=== PATIENT | female | born 1990 | race Caucasian/White ===

== ENCOUNTER 2016-09-04 18:54 | Emergency (ER) | payer OTHER ==
[2016-09-04 19:34] LABS: Hematocrit 39.1 % (37.0-47.0); Hemoglobin 13.4 gm/dL (12.5-16.0); Mean Cell Volume 89.9 fl (78-100); Mean Corpuscular Hemoglobin 30.8 pg (27-31); Mean Corpuscular Hgb Conc 34.3 g/dl (32-36); Mean Platelet Volume 10.2 fl (6.0-9.5); Neutrophil # 8.2 K/mm3 (1.3-6.0); Neutrophil % 61.8 % (42-75.0); Platelet Count 299 K/mm3 (150-450); Red Blood Count 4.35 M/mm3 (4.2-5.4); Red Cell Distribution Width 11.9 % (11.5-14.0); White Blood Count 13.2 K/mm3 (4.0-10.5)
[2016-09-04 19:43] LABS: Urine Bilirubin Negative (NEGATIVE); Urine Blood Negative /ul (NEGATIVE); Urine Ketone Negative (NEGATIVE); Urine Nitrite Negative (NEGATIVE); Urine Protein Negative (NEGATIVE); Urine Urobilinogen Normal (NORMAL)
[2016-09-04 19:52] LABS: Urine Appearance Clear; Urine Bacteria None Seen; Urine Color Yellow; Urine RBC None Seen /hpf (0-5); Urine WBC None Seen /hpf (0-5)
--- NOTE | 2016-09-04 20:20 | ERNOTE ---
ER Female HPI Date of Service: 09/04/16 Stated Complaint: , cramping Presenting Symptoms: pelvic pain Time Seen by Provider: 09/04/16 19:14 Source: patient Exam Limitations: no limitations Immunizations: IMMUNIZATION HX Immunizations Up to Date Yes Allergies/Adverse Reactions: Allergies No Known Allergies Allergy (Verified 05/25/16 13:14) Home Medications: HOME MEDICATIONS NK [No Home Medication] 05/25/16 [Last Taken Unknown] Vit37/Iron/Folic Acid [Prenata Chewable Tablet] 1 each PO DAILY [Last Taken Unknown] - History of Present Illness Narrative: 26-year-old female presenting to the emergency room for right lower quadrant abdominal cramping. States she took a home test and she is about 4-5 weeks . Patient states she does not have any vaginal discharge or bleeding but does have right lower quadrant cramping. Patient states she had her last miscarriage at week 5. Date (Duration): 09/04/16 Timing: Present: intermittent Quality: Present: mild Onset Location: Present: RLQ Radiation: Present: none Activities at Onset: Present: none Prior Abdominal Problems: Present: similar symptoms - with last miscarriage Sexual [place] History: Present: less than 2 months ago Associated Symptoms: Absent: fever/chills, nausea, vomiting Review of Systems - Review of Systems Constitutional: Present: no symptoms reported. Absent: fever, chills EYE: Present: no symptoms reported ENT: Present: no symptoms reported Respiratory: Present: no symptoms reported Cardiology: Present: no symptoms reported Gastrointestinal/Abdominal: Present: no symptoms reported Genitourinary: Present: See HPI Musculoskeletal: Present: no symptoms reported Skin: Present: no symptoms reported Neurological: Present: no symptoms reported Endocrine: Present: no symptoms reported Hematologic/Lymphatic: Present: no symptoms reported Psych: Present: no symptoms reported - Patient's Past Medical History Patient History - Medical: No pertinent hx Patient History - Cardiac/Respiratory: No pertinent hx Patient History - Cancer: No Hx of Cancer Patient History - Surgical Procedures: No surgical history Patient History - Other: None LMP (females 10-50): 1 month - Social History Living Situations: home Abuse History: No History of abuse Psych History: No pertinent hx Smoking Status: Never smoker Alcohol Use: none Drug Use: none - Immunizations Immunizations Up to Date: Yes Physical Exam - Physical Exam Narrative: patient states she has has right lower abdominal cramping on and off today. States it is not as bad as her period craps but can become uncomfortable. denies any vaginal discharge or blood. General Appearance: Present: wd/wn, alert, no apparent distress Eye Exam: Normal inspection: bilateral Ears, Nose, Throat: Present: normal ENT inspection Neck: Present: normal inspection Respiratory: Present: no respiratory distress Cardiovascular/Chest: Present: no murmur, normal peripheral pulses, tachycardia Gastrointestinal/Abdominal: Present: normal bowel sounds, nontender, soft - denies pain with palpation and states she is not having cramps at this time. Extremity Exam: Present: normal inspection Neurological Exam: Present: alert, oriented Skin Exam: Present: normal color Lymphatic Exam: Present: no adenopathy Pelvic Exam: Absent: discharge ED Progress - Results and Orders Patient's Lab Results:: I have reviewed the patient's lab results. Results and Orders: WBC elevated, UA negative - Vital Signs Patient's Vital Signs:: I have reviewed the patient's vital signs. Vital Signs: Vital Signs 09/04/16 19:03 Temperature 37.3 C Pulse Rate 115 H Respiratory 18 Rate Blood Pressure 145/90 O2 Sat by Pulse 100 Oximetry - CT/Ultrasound CT/Ultrasound Narrative: Technique: Transabdominal first trimester OB ultrasound performed. Incomplete evaluation of the IUP and ovaries necessitated transvaginal imaging Comparison: None Findings: Transabdominal and transvaginal images show a single intrauterine . Gestational sac yolk sac and pole are identified. Cardiac activity is visualized and documented at 91 beats per minute. This is fairly low for a first trimester . [place] -rump length measurements average 0.44 cm. 6 weeks 1 day. Corpus luteal cyst seen in the right ovary. Ovaries are otherwise normal. IMPRESSION: SINGLE LIVE INTRAUTERINE GESTATION AT 6 WEEKS 1 DAY. HOWEVER, THE CARDIAC ACTIVITY IS 91 BPM. THIS IS FAIRLY LOW FOR A FIRST TRIMESTER ULTRASOUND. RECOMMEND CLOSE CLINICAL FOLLOW-UP TO INCLUDE SERIAL BETA HCG EVALUATION EVERY 48 HOURS TO EVALUATE FOR APPROPRIATE INCREASE. Electronically signed by Ben Harman D.O.. - Progress/Reassessment Chief Complaint: Genitourinary Problem Progress:: Unchanged Plan - Plan Plan: after lab review, pelvic US to check for positive preg, us results: Technique: Transabdominal first trimester OB ultrasound performed. Incomplete evaluation of the IUP and ovaries necessitated transvaginal imaging Comparison: None Findings: Transabdominal and transvaginal images show a single intrauterine . Gestational sac yolk sac and pole are identified. Cardiac activity is visualized and documented at 91 beats per minute. This is fairly low for a first trimester . [place] -rump length measurements average 0.44 cm. 6 weeks 1 day. Corpus luteal cyst seen in the right ovary. Ovaries are otherwise normal. IMPRESSION: SINGLE LIVE INTRAUTERINE GESTATION AT 6 WEEKS 1 DAY. HOWEVER, THE CARDIAC ACTIVITY IS 91 BPM. THIS IS FAIRLY LOW FOR A FIRST TRIMESTER ULTRASOUND. RECOMMEND CLOSE CLINICAL FOLLOW-UP TO INCLUDE SERIAL BETA HCG EVALUATION EVERY 48 HOURS TO EVALUATE FOR APPROPRIATE INCREASE. Electronically signed by Ben Harman D.O.. Departure Clinical Impression: Threatened in early - Departure Disposition: Home Follow Up Needed Condition: Stable Instructions: Threatened Miscarriage, [id number] Additional Instructions: RETURN HOME AND REST. RETURN TO THE ER IF YOU HAVE INCREASED SYMPTOMS. MAY TAKE TYLENOL FOR PAIN. FOLLOW-UP WITH YOUR OBGYN TO INCLUDE SERIAL BETA HCG EVALUATION EVERY 48 HOURS TO EVALUATE FOR APPROPRIATE INCREASE. Referrals: Eve Reis MD [Primary Care Provider] -
[2016-09-04 20:22] VITALS: BP 129/89
== END 2016-09-04 22:15 | disposition home or self-care (01) ==
LOC: ER 18:54
DX: O20.0 Threatened abortion (principal); Z3A.01 Less than 8 weeks gestation of pregnancy

== ENCOUNTER 2016-12-09 18:40 | Emergency (ER) | payer OTHER ==
--- NOTE | 2016-12-09 19:10 | ERNOTE ---
Medical Problem HPI - Narrative Date of Service: 12/09/16 - General Chief Complaint: General Assessment Time Seen by Provider: 12/09/16 18:56 Source: patient Exam Limitations: no limitations - Immun/Allergies/Home Medications Immunizations: IMMUNIZATION HX Immunizations Up to Date Yes History of Influenza Vaccine Yes Allergies/Adverse Reactions: Allergies No Known Allergies Allergy (Verified 12/09/16 18:48) Home Medications: HOME MEDICATIONS Vit37/Iron/Folic Acid [Prenata Chewable Tablet] 1 each PO DAILY [Last Taken Unknown] - History of Present History Narrative: Pt. comes in with LLQ pain and cramping that is intermittent in nature for three days. Pt. is 19 weeks and has had nausea and vomiting throughout her entire but denies any change in that recently or other symptoms such as bleeding, fever, SOB, CP, NVD, recent illness, alleviating factors, aggravating factors, or prehospital treatment. Review of Systems - Review of Systems Constitutional: Present: no symptoms reported. Absent: recent illness, fever, chills, weakness, fatigue, malaise EYE: Present: no symptoms reported ENT: Present: no symptoms reported Respiratory: Present: no symptoms reported. Absent: shortness of breath, cough , wheezing Cardiology: Present: no symptoms reported. Absent: chest pain, palpitations, edema Gastrointestinal/Abdominal: Present: nausea, vomiting, abdominal pain. Absent: diarrhea, constipation, eating less, drinking less Genitourinary: Present: no symptoms reported. Absent: frequency, decreased urinary output Musculoskeletal: Present: no symptoms reported. Absent: back pain, joint pain Skin: Present: no symptoms reported Neurological: Present: no symptoms reported. Absent: headache, dizziness/light- headedness, numbness, tingling All Other Systems: All systems neg except as marked - Patient's Past Medical History Patient History - Medical: Other - miscarriage x 1 Patient History - Cardiac/Respiratory: No pertinent hx Patient History - Cancer: No Hx of Cancer Patient History - Surgical Procedures: No surgical history Patient History - Other: None - Social History Living Situations: significant other Abuse History: No History of abuse Psych History: No pertinent hx Smoking Status: Never smoker Alcohol Use: none Drug Use: none - Immunizations Immunizations Up to Date: Yes History of Influenza Vaccine: Yes Physical Exam - Physical Exam General Appearance: Present: wd/wn, alert, no apparent distress Eye Exam: Normal inspection: bilateral, PERRL: bilateral, EOMI: bilateral Neck: Present: normal inspection, nontender. Absent: lymphadenopathy (R), lymphadenopathy (L) Respiratory: Present: no respiratory distress, normal breath sounds, no accessory muscle use, chest nontender, lungs clear Cardiovascular/Chest: Present: regular rate, rhythm, no murmur, normal peripheral pulses Gastrointestinal/Abdominal: Present: normal bowel sounds, nondistended, soft, no organomegaly, tenderness - LLQ suprapubic Back Exam: Present: normal inspection Extremity Exam: Present: normal inspection Neurological Exam: Present: alert, oriented Skin Exam: Present: normal color, warm/dry. Absent: pallor, skin rash ED Progress - Date and Time Seen: Date and Time: 12/09/16 20:[address] Reis and will have pt. follow up for appointment as scheduled - Results and Orders Patient's Lab Results:: I have reviewed the patient's lab results. - Vital Signs Patient's Vital Signs:: I have reviewed the patient's vital signs. Vital Signs: Vital Signs 12/09/16 18:42 Temperature 37.2 C Pulse Rate 108 H Respiratory 18 Rate Blood Pressure 97/75 O2 Sat by Pulse 98 Oximetry - CT/Ultrasound CT/Ultrasound Narrative: US positive for FHT, venous biswas, and active fetus placenta is anterior and not encroaching - Progress/Reassessment Chief Complaint: General Assessment Progress:: Improved Departure - Departure Clinical Impression: Round ligament pain Disposition: Home self-care Condition: Good Instructions: Round Ligament Pain Additional Instructions: Please follow up with Dr kwan as next scheduled. no lifting and no sex until cleared by him. Referrals: Eve Reis MD [Primary Care Provider] -
[2016-12-09 19:21] LABS: Urine Appearance Slightly Cloudy; Urine Bilirubin Negative (NEGATIVE); Urine Blood Negative /ul (NEGATIVE); Urine Color Yellow; Urine Ketone Negative (NEGATIVE); Urine Nitrite Negative (NEGATIVE); Urine Protein Negative (NEGATIVE); Urine Urobilinogen Normal (NORMAL)
[2016-12-09 19:24] LABS: Urine Bacteria None Seen; Urine RBC None Seen /hpf (0-5); Urine WBC 0-5 /hpf (0-5)
[2016-12-09 20:16] VITALS: BP 130/87
== END 2016-12-09 20:39 | disposition home or self-care (01) ==
LOC: ER 18:40
DX: O26.892 Other specified pregnancy related conditions, second trimester (principal); R10.2 Pelvic and perineal pain; Z3A.19 19 weeks gestation of pregnancy

== ENCOUNTER 2017-04-09 13:49 | Inpatient (IN) | payer OTHER ==
[2017-04-09 14:08] LABS: Hemoglobin 13.1 gm/dL (12.5-16.0); Mean Cell Volume 95.4 fl (78-100); Mean Corpuscular Hgb Conc 33.6 g/dl (32-36); Mean Platelet Volume 11.2 fl (6.0-9.5); Neutrophil # 7.7 K/mm3 (1.3-6.0); Neutrophil % 66.4 % (42-75.0); Platelet Count 189 K/mm3 (150-450); Red Blood Count 4.09 M/mm3 (4.2-5.4); Red Cell Distribution Width 13.7 % (11.5-14.0); White Blood Count 11.6 K/mm3 (4.0-10.5)
[2017-04-09 14:16] LABS: Random Urine Total Protein 35.1 mg/dL (0-12)
[2017-04-09 14:20] LABS: Albumin * 2.4 gm/dl (3.4-5.0); Anion Gap 15.6 mmol/L (6.8-13.8); BUN/Creatinine Ratio 11.1 (9.0-21.6); Bilirubin, Total 0.2 mg/dL (0.0-1.1); Ca. Corrected For Albumin 9.9 mg/dL (8.4-10.2); Calcium * 8.9 mg/dL (7.9-10.9); Carbon Dioxide 21.5 mmol/L (24-32.6); Potassium 4.1 mmol/L (3.4-4.6); Total Protein 6.5 gm/dL (6.2-8.2)
[2017-04-09] MEDS ORDERED: OXYTOCIN/DEXTROSE 5%-WATER 30 UNITS/500 ML BAG IV ONE (16:02)
[2017-04-09] MEDS ORDERED: LIDOCAINE HCL 50 ML VIAL PERI PRN (16:02)
[2017-04-09] MEDS ORDERED: ONDANSETRON HCL/PF 2 MG/ML VIAL IV PRN (16:02)
[2017-04-09] MEDS ORDERED: RINGER'S SOLUTION,LACTATED 1,000 ML IV ONE (16:02)
[2017-04-09] MEDS: DEXTROSE 5%-LACTATED RINGERS 1,000 ML IV PRN (16:31)
--- NOTE | 2017-04-10 04:10 | PN ---
Progess Note - Interim Narrative: 04/10/17 04:07 Patient becoming more uncomfortable with contractions Vital signs stable. BPs 130-140s/60-90's Pitocin at 12 mu/min. FHT:150 baseline, reassuring Contractions q 2-3 min Cervix: 4-5/90/-2, AROM-clear Impression: Intrauterine at 37 2/7 weeks induction of labor for gestational hypertension. IUPC and FSE placed to difficulty monitoring Plan: Continue present plan
[2017-04-10] MEDS ORDERED: ONDANSETRON HCL/PF 2 MG/ML VIAL IV PRN (04:17)
[2017-04-10] MEDS ORDERED: NALOXONE HCL 1 MG/1 ML SYRG IV PRN (04:17)
[2017-04-10] MEDS ORDERED: BUPIVACAINE HCL/0.9 % NACL/PF 250 ML EP PRN (04:17)
[2017-04-10] MEDS ORDERED: fentaNYL CITRATE/PF 50 MCG/ML AMPUL IT SCH (04:30)
[2017-04-10] MEDS: DEXTROSE 5%-LACTATED RINGERS 1,000 ML IV PRN (05:06)
--- NOTE | 2017-04-10 05:12 | OR ---
Anesthesia Pre Procedure Eval Date of Service: 04/10/17 Pre Procedure Evaluation: Anesthesia Pre Procedure Evaluation Heart Rate: 114 Blood Pressure: 141/79 Temperature: 37.2C Respiratory Rate: 18 SaO2: 96 DATE: 04/10/2017 TIME: 05 10 AM INDICATIONS: Active labor, labor pain PAST MEDICAL HISTORY: Multipara patient connector. Labor requesting labor analgesia, being induced for gestational hypertension and is History of GERD: Now History of smoking: No History of sleep apnea: No EXAM: Heart regular; lungs clear ASSESSMENT OF MEDICAL STATUS: Appropriate candidate for labor analgesia PLANNED PROCEDURE: CSE for Home Medications: HOME MEDICATIONS Vit37/Iron/Folic Acid [Prenata Chewable Tablet] 1 each PO DAILY [Last Taken 03/12/17 21:00] Aspirin 1 tab PO DAILY 03/13/17 [Last Taken 03/12/17 21:00] Ferrous Sulfate [Iron] 1 tab PO DAILY 03/13/17 [Last Taken 03/12/17 21:00]
--- NOTE | 2017-04-10 05:32 | OR ---
Anesthesia Procedure Note - Anesthesia Procedure Note Date of Service: 04/10/17 Narrative: 04/10/17 05:31 ANESTHESIA PROCEDURE NOTE Date of Procedure: 04/10/2017 Time of procedure: 5:10 AM. Performed by: MARJORIE Vaughn CRNA, MSN Prosthetics Technician: Connie Crouch RN. Preprocedure diagnosis: Active labor, labor pain. Post procedure diagnosis: Same. Procedure:Epidural for labor analgesia L3 4. Indications: Labor pain. Findings: See below. Details of the procedure: The patient was placed on the side of the bed in sitting positionand prepped with DuraPrep then draped in a sterile fashion. Lidocaine 1% was infiltrated to the skin and subcutaneous tissues at the level of the L3 4 interspace. An 18-gauge Touhy needle was used to approach the epidural space with loss of resistance technique. Once loss of resistance was achieved a 27-gauge spinal needle was passed through the epidural needle and CSF was contacted. After CSF returned, 20 mcg of fentanyl was injected in the spinal needle was removed the epidural catheter was then threaded approximately 4 cm in the epidural needle was removed. The catheter was taped in place and after careful aspiration 3 mL of 1.5% lidocaine with 1-200,000 epinephrine was injected without change in maternal heart rate or sensorium. . EBL: Minimal. Fluids: N/A. Specimen: N/A. Post procedure condition: The patient tolerated the procedure well with good relief. No complications were noted. Thank you for this consultation. Luis Mckee CRNA, MARJORIE, MSN
[2017-04-10] MEDS ORDERED: HYDROCORTISONE 30 APPL TUBE TP PRN (07:29)
[2017-04-10] MEDS ORDERED: GLYCERIN/WITCH HAZEL LEAF 40 APPL BOX TP PRN (07:29)
[2017-04-10] MEDS ORDERED: oxyCODONE HCL/ACETAMINOPHEN 1 TAB TABLET PO PRN ×2 (07:29)
[2017-04-10] MEDS ORDERED: BENZOCAINE/MENTHOL 81 SPRAY CAN TP PRN (07:29)
[2017-04-10] MEDS ORDERED: SENNOSIDES 8.6 MG TABLET PO PRN (07:29)
[2017-04-10] MEDS ORDERED: BISACODYL 10 MG SUPP.RECT RC PRN (07:29)
[2017-04-10] MEDS ORDERED: OXYTOCIN/DEXTROSE 5%-WATER 30 UNITS/500 ML BAG IV ONE (07:29)
--- NOTE | 2017-04-10 07:31 | OR ---
Operative Report - Dictated Report Narrative: Spontaneous vaginal delivery of viable female at 0653 on 04/10/2017 with Apgars 8 and 9, weighing 3300 g in MENDEL position. Left hand presented with chin. Cord clamping delayed approximately 1 minute Placenta delivered complete, intact, with three vessel cord Estimated blood loss: less than 50 ml Lacerations: None
[2017-04-10] MEDS: IBUPROFEN 800 MG TABLET PO PRN (08:53)
[2017-04-10] MEDS: DOCUSATE SODIUM 100 MG CAPSULE PO SCH ×2 (10:37→20:24)
[2017-04-11] MEDS: IBUPROFEN 800 MG TABLET PO PRN ×2 (02:19→22:03)
[2017-04-11] MEDS: DOCUSATE SODIUM 100 MG CAPSULE PO SCH ×2 (09:06→21:07)
--- NOTE | 2017-04-11 11:57 | PN ---
Subjective - Date and Time Seen Date: 04/11/17 Time: 11:57 Objective - Vitals Vitals: Last Vital Signs Temp 36.6 C 04/11/17 09:07 Pulse 92 04/11/17 09:07 Resp 16 04/11/17 09:07 BP 129/78 04/11/17 09:07 Pulse Ox 97 04/11/17 09:07 Patient denies complaints. Lochia wnl Abdomen - soft, nontender Uterus - firm, at umbilicus - 1 No calf tenderness Impression: day #1 - s/p spontaneous vaginal delivery. Gestational hypertension-stable. Plan: Continue routine care Cauti Physician Documentation - Urinary Catheter Management Urethral (Anthony) Date of Insertion: 04/10/17 Time of Insertion: 06:10 Date of Removal: 04/10/17 Time of Removal: 06:35
[2017-04-12] MEDS: DOCUSATE SODIUM 100 MG CAPSULE PO SCH ×2 (08:34→20:26)
[2017-04-12] MEDS: IBUPROFEN 800 MG TABLET PO PRN ×2 (11:34→20:26)
--- NOTE | 2017-04-12 13:40 | PN ---
Subjective - Date and Time Seen Date: 04/12/17 Time: 13:33 Objective - Vitals Vitals: Last Vital Signs Temp 36.4 C L 04/12/17 08:30 Pulse 91 04/12/17 08:30 Resp 18 04/12/17 08:30 BP 145/95 04/12/17 08:30 Pulse Ox 100 04/12/17 08:30 Patient denies complaints. Lochia wnl Abdomen - soft, nontender Uterus - firm, at umbilicus - 2 No calf tenderness Impression: day #2 - s/p spontaneous vaginal delivery. Gestational hypertension-stable. Morbid obesity. Plan: Routine discharge instructions. Preeclampsia precautions. Follow-up for blood pressure check in 1 week. Cauti Physician Documentation - Urinary Catheter Management Urethral (Anthony) Date of Insertion: 04/10/17 Time of Insertion: 06:10 Date of Removal: 04/10/17 Time of Removal: 06:35
[2017-04-12 22:25] VITALS: BP 139/88
== END 2017-04-12 23:59 | disposition home or self-care (01) | DRG 775 ==
LOC: LAB 13:49 → OB 15:38 → MS 04-10 18:10
PROVIDERS: ADMIT Obstetrics & Gynecology; ATTEND Obstetrics & Gynecology
PROC: 10E0XZZ Delivery of Products of Conception, External Approach (ICD-10-PCS; principal; 2017-04-10)
PROC: 10907ZC Drainage of Amniotic Fluid, Therapeutic from Products of Conception, Via Natural or Artificial Opening (ICD-10-PCS; 2017-04-10)
PROC: 3E0P3VZ Introduction of Hormone into Female Reproductive, Percutaneous Approach (ICD-10-PCS; 2017-04-10)
PROC: 4A1H7CZ Monitoring of Products of Conception, Cardiac Rate, Via Natural or Artificial Opening (ICD-10-PCS; 2017-04-10)
PROC: 00HU33Z Insertion of Infusion Device into Spinal Canal, Percutaneous Approach (ICD-10-PCS; 2017-04-10)
DX: O13.4 Gestational [pregnancy-induced] hypertension without significant proteinuria, complicating childbirth (principal); Z68.42 Body mass index [BMI] 45.0-49.9, adult; O99.214 Obesity complicating childbirth; E66.01 Morbid (severe) obesity due to excess calories; Z3A.37 37 weeks gestation of pregnancy; Z37.0 Single live birth

== ENCOUNTER 2017-04-17 07:52 | Emergency (ER) | payer OTHER ==
[2017-04-17] MEDS ORDERED: ONDANSETRON HCL/PF 2 MG/ML VIAL IV ONE (08:18)
[2017-04-17] MEDS ORDERED: NORMAL SALINE 1,000 ML IV ONE (08:18)
--- NOTE | 2017-04-17 08:21 | ERNOTE ---
Medical Problem HPI - General Chief Complaint: General Assessment Time Seen by Provider: 04/17/17 08:15 Source: patient Exam Limitations: no limitations - Immun/Allergies/Home Medications Immunizations: IMMUNIZATION HX Immunizations Up to Date Yes History of Influenza Vaccine Yes Hx Pneumococcal Vaccination No Allergies/Adverse Reactions: Allergies No Known Allergies Allergy (Verified 04/17/17 08:02) Home Medications: HOME MEDICATIONS Vit37/Iron/Folic Acid [Prenata Chewable Tablet] 1 each PO DAILY [Last Taken 03/12/17 21:00] Ferrous Sulfate [Iron] 1 tab PO DAILY 03/13/17 [Last Taken 03/12/17 21:00] Ibuprofen [Motrin] 200 - 800 mg PO Q6H PRN #100 tab 04/11/17 [Last Taken Unknown ] Cefuroxime Axetil [Ceftin] 500 mg PO BID #20 tab 04/17/17 [Last Taken Unknown] FLUoxetine HCL [Prozac] 40 mg PO DAILY 04/17/17 [Last Taken Unknown] Ondansetron [Zofran Odt] 4 mg PO Q6H PRN #14 tab 04/17/17 [Last Taken Unknown] - History of Present History Narrative: Patient is approximate 1 week . She is having episodes of shaking and chills, she's noticed that her blood sugar has been up when she checks it on her [id number] system and she still feels somewhat weak. Timing: intermittent Severity: moderate Review of Systems - Review of Systems Constitutional: Present: See HPI, weakness EYE: Present: no symptoms reported ENT: Present: no symptoms reported Respiratory: Present: no symptoms reported Cardiology: Present: palpitations Gastrointestinal/Abdominal: Present: no symptoms reported Genitourinary: Present: no symptoms reported Musculoskeletal: Present: no symptoms reported Skin: Present: no symptoms reported Neurological: Present: no symptoms reported Endocrine: Present: no symptoms reported Hematologic/Lymphatic: Present: no symptoms reported Psych: Present: no symptoms reported - Patient's Past Medical History Patient History - Medical: Depression, Other Patient History - Cardiac/Respiratory: No pertinent hx Patient History - Cancer: No Hx of Cancer Patient History - Surgical Procedures: No surgical history Patient History - Other: None LMP (females 10-50): now - Social History Living Situations: home Abuse History: No History of abuse Psych History: No pertinent hx Smoking Status: Never smoker Have you smoked in the past 12 months: No Alcohol Use: none Drug Use: none - Immunizations Immunizations Up to Date: Yes Hx Pneumococcal Vaccination: No History of Influenza Vaccine: Yes Physical Exam - Physical Exam General Appearance: Present: wd/wn, alert, mild distress Head Exam: Present: normal inspection Eye Exam: Normal inspection: bilateral, PERRL: bilateral Ears, Nose, Throat: Present: normal pharynx, dry mucous membranes Neck: Present: normal inspection, nontender Respiratory: Present: no respiratory distress, normal breath sounds, no accessory muscle use, chest nontender, lungs clear Cardiovascular/Chest: Present: no murmur, normal peripheral pulses, tachycardia Gastrointestinal/Abdominal: Present: normal bowel sounds, nontender, nondistended, soft, no organomegaly Rectal Exam: Present: deferred Back Exam: Present: normal inspection, normal range of motion Extremity Exam: Present: normal inspection, non-tender, no edema, normal range of motion Neurological Exam: Present: alert, oriented, normal mood/affect Skin Exam: Present: normal color, warm/dry Lymphatic Exam: Present: no adenopathy ED Progress - Results and Orders Patient's Lab Results:: I have reviewed the patient's lab results. - Vital Signs Patient's Vital Signs:: I have reviewed the patient's vital signs. Vital Signs: Vital Signs 04/17/17 07:58 Temperature 36.7 C Pulse Rate 122 H Respiratory 16 Rate Blood Pressure 135/54 O2 Sat by Pulse 98 Oximetry - X-Ray X-Ray #1 X-Ray: chest Interpretation: Reviewed by me - Progress/Reassessment Chief Complaint: General Assessment Progress:: Improved Plan - Plan Plan: I discussed the case with Dr. Corona's staff and while the patient was set up for a blood pressure check tomorrow in his office, they are going to change that now to an ER follow-up. I discussed with them the mildly elevated blood sugar, the low potassium as well as urinary tract infection. They are aware that the patient was given 40 mEq of potassium, a gram of Rocephin IV as well as a liter of fluid with Zofran. Departure Clinical Impression: Hypokalemia UTI (urinary tract infection) Qualifiers: Urinary tract infection type: acute cystitis Hematuria presence: with hematuria Qualified Code(s): N30.01 - Acute cystitis with hematuria - Departure Disposition: Home self-care Condition: Good Instructions: and Urinary Tract Infection, Urinary Tract Infection, Adult, [id number] Additional Instructions: Keep your appointment with Dr. Corona tomorrow Referrals: Eve Reis MD [Primary Care Provider] - Prescriptions: Cefuroxime Axetil [Ceftin] 500 mg PO BID #20 tab Ondansetron [Zofran Odt] 4 mg PO Q6H PRN #14 tab PRN Reason: Nausea And Vomiting
[2017-04-17 08:31] LABS: Hematocrit 38.2 % (37.0-47.0); Hemoglobin 13.1 gm/dL (12.5-16.0); Mean Cell Volume 94.1 fl (78-100); Mean Corpuscular Hemoglobin 32.3 pg (27-31); Mean Corpuscular Hgb Conc 34.3 g/dl (32-36); Mean Platelet Volume 10.4 fl (6.0-9.5); Neutrophil # 16.6 K/mm3 (1.3-6.0); Neutrophil % 84.5 % (42-75.0); Platelet Count 208 K/mm3 (150-450); Red Blood Count 4.06 M/mm3 (4.2-5.4); Red Cell Distribution Width 13.4 % (11.5-14.0); White Blood Count 19.7 K/mm3 (4.0-10.5)
[2017-04-17 08:43] LABS: Albumin * 2.3 gm/dl (3.4-5.0); BUN/Creatinine Ratio 9.7 (9.0-21.6); Bilirubin, Total 0.4 mg/dL (0.0-1.1); Ca. Corrected For Albumin 9.6 mg/dL (8.4-10.2); Calcium * 8.6 mg/dL (7.9-10.9); Total Protein 6.8 gm/dL (6.2-8.2)
[2017-04-17] MEDS ORDERED: ONDANSETRON HCL/PF 2 MG/ML VIAL ONE (08:51)
[2017-04-17 08:54] LABS: Urine Bilirubin Negative (NEGATIVE); Urine Blood 50 /ul (NEGATIVE); Urine Ketone Negative (NEGATIVE); Urine Protein 100 mg/dL (NEGATIVE); Urine Specific Gravity 1.015 SP.GR. (1.005-1.010); Urine Urobilinogen Normal (NORMAL)
[2017-04-17 09:09] LABS: Urine Appearance Turbid; Urine Color Yellow; Urine Nitrite Positive (NEGATIVE)
[2017-04-17 09:10] LABS: Urine Bacteria 3+; Urine RBC 0-5 /hpf (0-5); Urine WBC >50 /hpf (0-5)
[2017-04-17] MEDS ORDERED: POTASSIUM CHLORIDE 20 MEQ TABLET.SA PO ONE (09:55)
[2017-04-17] MEDS ORDERED: POTASSIUM CHLORIDE 20 MEQ TABLET.SA ONE (09:57)
[2017-04-17 10:55] VITALS: BP 137/89
== END 2017-04-17 10:30 | disposition home or self-care (01) ==
LOC: ER 07:52
DX: E87.6 Hypokalemia (principal); N30.01 Acute cystitis with hematuria; F32.9 Major depressive disorder, single episode, unspecified
CPT/HCPCS: 36415; 71020; 80053; 81001; 83735; 85025; 87077; 87086; 87186; 96365; 96375; 99284; J2405

== ENCOUNTER 2017-05-30 06:40 | Day surgery (SDC) | payer MEDICAID, OTHER ==
[~2017-05-30 06:40] MED LIST: RINGER'S SOLUTION,LACTATED 1,000 ML IV PRN
[2017-05-30] MEDS ORDERED: LIDOCAINE HCL/EPINEPHRINE 50 ML VIAL IJ ONE (08:30)
--- NOTE | 2017-05-30 08:39 | OR ---
Operative Report - Dictated Report Narrative: INDICATION: 27 year old female desires permanent sterilization PREOPERATIVE DIAGNOSIS: Multiparity, desires permanent sterilization POSTOPERATIVE DIAGNOSIS: Multiparity, desires permanent sterilization OPERATION: Laparoscopic bilateral tubal fulguration SURGEON: Joyce Corona D.O. ORBITREAD OPERATOR: None ANESTHESIA: General ESTIMATED BLOOD LOSS: Minimal FLUID REPLACEMENT: 500 mL URINE OUTPUT: Not measured FINDINGS: Normal uterus, tubes, ovaries, anterior/posterior culdesac, appendix, liver edge, and tip of gallbladder SPECIMEN(S): None DRAINS: none TECHNIQUE: The patient was taken to the operating room and placed in dorsal lithotomy position after adequate general anesthesia was obtained. The anterior lip of the cervix was grasped with a long Allis clamp and a Valchev manipulator was inserted into the cervical canal and attached to the Allis clamp as a means to manipulate the uterus. Bladder was drained prior to patient entering the OR. Gloves were changed and attention was turned to the abdomen. A 1% lidocaine epinephrine solution was injected into the skin and through the underlying layers of the abdomen at the umbilicus. A scalpel was used to score the skin and a 12 mm non-bladed trocar was inserted via direct technique under direct visualization. Pneumoperitoneum was created with CO2 gas. Using the operative scope, a survey of the abdominal cavity revealed findings as noted above. The right fallopian tube was identified and followed out to the fimbriated end. Approximately 3 cm of the fallopian tube was coagulated with the Kleppinger's approximately 2 cm from the cornual region. The exact same was done on the patient's left side. The CO2 gas was removed from the abdominal cavity. The trocar was removed under direct visualization. The fascia was closed with a single interrupted 0 Vicryl suture. The skin was closed with 4-0 Monocryl. Instruments were removed from the cervix and vagina. Sponge, lap, instrument, and needle count were correct x 2. DISPOSITION: The patient was awakened and transferred to post anesthesia care unit in good condition.
[2017-05-30] MEDS ORDERED: MORPHINE SULFATE 2 MG/ML DISP.SYRIN IV PRN (09:49)
[2017-05-30] MEDS ORDERED: oxyCODONE HCL/ACETAMINOPHEN 1 TAB TABLET PO PRN (09:50)
[2017-05-30] MEDS ORDERED: IBUPROFEN 800 MG TABLET PO PRN (09:51)
[2017-05-30 10:32] VITALS: BP 121/68
== END 2017-05-30 06:41 | disposition home or self-care (01) ==
LOC: AMB 06:40
PROVIDERS: ATTEND Obstetrics & Gynecology
PROC: 0U574ZZ Destruction of Bilateral Fallopian Tubes, Percutaneous Endoscopic Approach (ICD-10-PCS; principal; 2017-05-30 08:00)
DX: Z30.2 Encounter for sterilization (principal); D64.9 Anemia, unspecified; F32.9 Major depressive disorder, single episode, unspecified; Z68.39 Body mass index [BMI] 39.0-39.9, adult